=== PATIENT | male | born 1965 | race Caucasian/White ===

== ENCOUNTER 2017-10-29 07:29 | Day surgery (SDC) | payer BC, OTHER ==
[~2017-10-29 07:29] MED LIST: LIDOCAINE 2% MDV 20 ML VIAL As Ordered; PROPOFOL 200 MG/20 ML VIAL As Ordered
[2017-10-29] MEDS: NS 1,000 ML IV (07:44)
[2017-10-29] MEDS ORDERED: PROPOFOL 200 MG/20 ML VIAL As Ordered (09:03)
== END 2017-10-29 09:41 | disposition home or self-care (01) ==
LOC: M OPP 07:29
DX: Z12.11 Encounter for screening for malignant neoplasm of colon (principal); D12.2 Benign neoplasm of ascending colon; K57.30 Diverticulosis of large intestine without perforation or abscess without bleeding; E78.5 Hyperlipidemia, unspecified; D68.8 Other specified coagulation defects; M19.90 Unspecified osteoarthritis, unspecified site; Z86.711 Personal history of pulmonary embolism; F17.220 Nicotine dependence, chewing tobacco, uncomplicated; Z79.01 Long term (current) use of anticoagulants
CPT/HCPCS: 45385

== ENCOUNTER → 2018-10-19 | Outpatient (CLI) | payer BC, OTHER ==
[~2018-10-19] MED LIST changes: -LIDOCAINE 2% MDV 20 ML VIAL As Ordered; -PROPOFOL 200 MG/20 ML VIAL As Ordered; +REDPOW2 PO; +ULTR37.54 PO; +WARF-20 PO
--- NOTE | 2018-10-20 07:38 | REP ---
Clinical: Right-sided chest Trauma. Technique: Frontal view of the chest with multiple views of the right hemithorax. Findings: Frontal view of the chest demonstrates no acute cardiopulmonary process. Multiple views of the right hemithorax demonstrates no obvious acute rib fracture or pathology. Impression: No acute rib fracture identified. Electronically Signed by Jacobo Mejias MD 10/20/2018 07:30 A
== END ==
LOC: M ADAMS 16:53
PROVIDERS: ATTEND Physician Assistant
DX: S20.211A Contusion of right front wall of thorax, initial encounter (principal); X58.XXXA Exposure to other specified factors, initial encounter; Y92.9 Unspecified place or not applicable

== ENCOUNTER 2019-09-06 04:17 | Emergency (ER) | payer BC, OTHER ==
[~2019-09-06] VITALS: Ht 172.7 cm; Wt 111.4 kg
[2019-09-06] MEDS ORDERED: OMEP-221 (04:24)
[2019-09-06 04:56] LABS: BASO # 0.1 10^3/uL (0.0-0.2); BASO % 0.5 % (0.0-1.0); EOS # 0.2 10^3/uL (0.0-0.5); EOS % 1.1 % (0.0-3.0); HEMATOCRIT 48.7 % (42.0-52.0); HEMOGLOBIN 16.5 g/dl (13.5-17.5); LYMPH # 1.8 10^3/uL (1.5-5.0); LYMPH % 11.8 % (24.0-44.0); MEAN CORPUSCULAR HEMOGLOBIN 30.6 pg (27.0-33.0); MEAN CORPUSCULAR HGB CONC 33.9 g/dl (32.0-36.5); MEAN CORPUSCULAR VOLUME 90.2 fl (80.0-96.0); MONO # 1.2 10^3/uL (0.0-0.8); MONO % 7.8 % (0.0-5.0); NEUTROPHILS # 11.9 10^3/uL (1.5-8.5); NEUTROPHILS % 78.5 % (36.0-66.0); PLATELET COUNT, AUTOMATED 228 10^3/uL (150-450); WHITE BLOOD COUNT 15.1 10^3/uL (4.0-10.0)
[2019-09-06] MEDS ORDERED: HYDROMORPHONE HCL 0.5 MG/ 0.5 ML SYRINGE (J1170 PER 1) IV ONE (05:15)
[2019-09-06 05:30] LABS: ALBUMIN 4.1 GM/DL (3.2-5.2); ALT/SGPT 28 U/L (12-78); BILIRUBIN,DIRECT 0.1 MG/DL (0.0-0.2); BILIRUBIN,TOTAL 0.5 MG/DL (0.2-1.0); BLOOD UREA NITROGEN 23 MG/DL (7-18); CALCIUM LEVEL 9.8 MG/DL (8.5-10.1); CARBON DIOXIDE LEVEL 24 MEQ/L (21-32); CHLORIDE LEVEL 107 MEQ/L (98-107); CREATININE FOR GFR 0.94 MG/DL (0.70-1.30); GLOMERULAR FILTRATION RATE > 60.0 (>56); GLUCOSE, FASTING 124 MG/DL (70-100); LIPASE 112 U/L (73-393); POTASSIUM SERUM 4.3 MEQ/L (3.5-5.1); SODIUM LEVEL 142 MEQ/L (136-145); TOTAL PROTEIN 7.4 GM/DL (6.4-8.2)
[2019-09-06] MEDS ORDERED: NS 1,000 ML IV ONE (05:30)
[2019-09-06] MEDS ORDERED: TAMSULOSIN 0.4 MG CAP PO ONE (05:30)
[2019-09-06] MEDS ORDERED: KETOROLAC 30 MG/ML VIAL (J1885) As Ordered ONE (05:59)
--- NOTE | 2019-09-06 06:26 | REPVR ---
PROCEDURE INFORMATION: Exam: CT Abdomen And Pelvis Without Contrast Exam date and time: 09/06/2019 5:27 AM Age: 53 years old Clinical history: Abdominal pain; Colic; Additional info: L colic TECHNIQUE: Imaging protocol: Computed tomography of the abdomen and pelvis without contrast. Radiation optimization: All CT scans at this facility use at least one of these dose optimization techniques: automated exposure control; mA and/or kV adjustment per patient size (includes targeted exams where dose is matched to clinical indication); or iterative reconstruction. COMPARISON: CT Pelvis without contrast 03/21/2014 2:40 AM FINDINGS: Lungs: Minimal right lower lobe atelectasis. Liver: Hepatic calcification in the medial dome. Gallbladder and bile ducts: Normal. No calcified stones. No ductal dilation. Pancreas: Normal. No ductal dilation. Spleen: Normal. No splenomegaly. Adrenals: Normal. No mass. Kidneys and ureters: There is a left renal cyst measuring up to 16 mm. Left perinephric stranding and induration with mild hydronephrosis and hydroureter and periureteral edema which extends to a left UVJ calculus measuring 5 x 4 x 4 mm. Stomach and bowel: Colonic diverticulosis without diverticulitis. Appendix: A normal appendix is seen. Intraperitoneal space: Unremarkable. No free air. No significant fluid collection. Vasculature: Unremarkable. No abdominal aortic aneurysm. Lymph nodes: Unremarkable. No enlarged lymph nodes. Bladder: Unremarkable as visualized. Reproductive: Unremarkable as visualized. Bones/joints: Mild diffuse compression of T12 and to a lesser degree T11 which appear to be chronic. Soft tissues: Small left inguinal hernia with proximal sigmoid protruding just into the orifice. IMPRESSION: 1. Left UVJ calculus measuring 5 x 4 x 4 mm with secondary obstructive uropathy of the left upper tract. 2. Colonic diverticulosis without diverticulitis. 3. Small left inguinal hernia with sigmoid colon protruding just into the orifice. Electronically signed by: Anderson Ramirez On 09/06/2019 06:26:03 AM
[2019-09-06 06:31] LABS: INR 2.61; PROTHROMBIN TIME 27.8 SECONDS (11.8-14.0)
[2019-09-06 06:32] LABS: PARTIAL THROMBOPLASTIN TIME 36.8 SECONDS (25.0-38.4)
[2019-09-06] MEDS ORDERED: KETOROLAC 30 MG/ML VIAL (J1885) IV ONE (07:00)
[2019-09-06] MEDS ORDERED: FLOM0.4C39 PO (07:01)
[2019-09-06] MEDS ORDERED: PERC5TAB12 PO (07:02)
[2019-09-06 07:24] VITALS: BP 152/76
== END 2019-09-06 07:26 | disposition home or self-care (01) ==
LOC: M ED 04:17
DX: N20.1 Calculus of ureter (principal); K21.9 Gastro-esophageal reflux disease without esophagitis; Z86.711 Personal history of pulmonary embolism; Z79.899 Other long term (current) drug therapy; Z79.01 Long term (current) use of anticoagulants
CPT/HCPCS: 74176; 80048; 80076; 81001; 83690; 85025; 85610; 85730; 96361; 96374; 96375; 99284; J1170; J1885

== ENCOUNTER → 2019-11-29 | Outpatient (CLI) | payer BC, OTHER ==
[~2019-11-29] MED LIST changes: +FLOM0.4C39 PO; +OMEP-221; +PERC5TAB12 PO
--- NOTE | 2019-11-29 12:18 | REP ---
LEFT FEMUR, AP AND LATERAL: AP and lateral views of the left femur performed. There is no acute fracture or dislocation. There is mild joint space narrowing, subchondral sclerosis and spurring at the hip joint. IMPRESSION: No acute fracture or dislocation. Electronically Signed by Brady Rincon MD 11/29/2019 03:58 P
== END ==
LOC: M ADAMS 10:52
PROVIDERS: ATTEND Physician Assistant
DX: S70.12XA Contusion of left thigh, initial encounter (principal); X58.XXXA Exposure to other specified factors, initial encounter; Y92.89 Other specified places as the place of occurrence of the external cause

== ENCOUNTER → 2022-05-23 | Outpatient (CLI) | payer BC, OTHER ==
[~2022-05-23] MED LIST changes: +ATOR1TAB21; +ELIQ2.5T PO; +ELIQ5TAB PO; +LOVE0.8I SC; -OMEP-221; +OMEP40CA5; +ULTR1TAB PO; -ULTR37.54 PO; +XARE10TA PO
== END ==
LOC: M WUC 11:30
PROVIDERS: ATTEND Family Medicine
DX: M25.551 Pain in right hip (principal)

== ENCOUNTER → 2022-07-28 | Outpatient (CLI) | payer BC, OTHER | LOC: M LABSMTC 11:33 | PROVIDERS: ATTEND Orthopaedic Surgery | DX: Z01.812 Encounter for preprocedural laboratory examination (principal) ==

== ENCOUNTER → 2022-12-17 | Outpatient (CLI) | payer BC, OTHER ==
[~2022-12-17] MED LIST changes: +TAMS1CAP17; +TRAM50TA2
== END ==
LOC: M WUC 11:07
PROVIDERS: ATTEND Physician Assistant
DX: R06.02 Shortness of breath (principal); R05.1 Acute cough

== ENCOUNTER → 2024-09-21 | Outpatient (CLI) | payer BC, OTHER ==
[2024-09-21 11:26] LABS: HEMATOCRIT 45.9 % (42.0-52.0); HEMOGLOBIN 15.6 g/dl (13.5-17.5); MEAN CORPUSCULAR HEMOGLOBIN 31.3 pg (27.0-33.0); MEAN CORPUSCULAR VOLUME 92.2 fl (80.0-96.0); PLATELET COUNT, AUTOMATED 221 10^3/uL (150-450); RED BLOOD COUNT 4.98 10^6/uL (4.30-6.10)
[2024-09-21 12:02] LABS: ALBUMIN 3.9 G/DL (3.2-5.2); ALKALINE PHOSPHATASE 58 U/L (40-129); ALT/SGPT 32 U/L (7.0-40); AST/SGOT 29 U/L (<34); BILIRUBIN,TOTAL 0.4 MG/DL (0.3-1.2); BLOOD UREA NITROGEN 14 MG/DL (9-23); CARBON DIOXIDE LEVEL 30 MMOL/L (20-31); CHLORIDE LEVEL 106 MMOL/L (98-107); CHOLESTEROL LEVEL 192 MG/DL (<200); CHOLESTEROL RISK RATIO 2.57 (<5); CREATININE FOR GFR 0.61 MG/DL (0.70-1.30); GLOMERULAR FILTRATION RATE > 60.0 (>49); GLUCOSE, FASTING 104 MG/DL (74-106); HDL CHOLESTEROL 74.5 MG/DL (>40); LDL CHOLESTEROL 101.1 MG/DL (<100); NON-HDL-C 117.5 MG/DL; POTASSIUM SERUM 5.1 MMOL/L (3.5-5.1); SODIUM LEVEL 143 MMOL/L (136-145); TOTAL PROTEIN 7.1 G/DL (5.7-8.2); TRIGLYCERIDES LEVEL 82 MG/DL (<150)
== END ==
LOC: M WUC 09:43
PROVIDERS: ATTEND Physician Assistant
DX: Z79.01 Long term (current) use of anticoagulants (principal); E78.5 Hyperlipidemia, unspecified; D68.51 Activated protein C resistance

== ENCOUNTER → 2025-02-13 | Outpatient (CLI) | payer BC, OTHER ==
[~2025-02-13] MED LIST changes: -FLOM0.4C39 PO; +TAMS-18 PO
== END ==
LOC: M RAD 09:35
PROVIDERS: ATTEND Registered Nurse
DX: J20.9 Acute bronchitis, unspecified (principal)

== ENCOUNTER → 2025-09-21 | Outpatient (CLI) | payer BC | LOC: M WUC 09:30 | DX: R06.02 Shortness of breath (principal) ==